=== PATIENT | male | born 1965 | race Caucasian/White ===

== ENCOUNTER 2020-11-02 22:07 | Emergency (ER) | payer MEDICARE, OTHER ==
[~2020-11-02] VITALS: Ht 185.4 cm; Wt 135.6 kg
[2020-11-02 22:31] VITALS: BP 91/64
== END 2020-11-03 02:56 | disposition left against medical advice (07) ==
LOC: ER 22:08
DX: M79.674 Pain in right toe(s) (principal); Z53.21 Procedure and treatment not carried out due to patient leaving prior to being seen by health care provider